=== PATIENT | female | born 2000 | race Caucasian/White ===

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

== ENCOUNTER 2021-06-28 20:57 | Emergency (ER) | payer SELFPAY ==
--- NOTE | 2021-06-28 21:37 | ED Lower Extremity ---
General Chief Complaint: Lower Extremity Stated Complaint: FALL/LEFT LEG INJURY Source: patient History of Present Illness Date Seen by Provider: Jun 28, 2021 Time Seen by Provider: 21:15 Initial Comments PT ARRIVES VIA POV FROM HOME PT STATES 30 MINUTES AGO, SHE STEPPED ON A PIECE OF PAPER ON A [place] FLOOR, WITH HER LEFT FOOT, AND HER LEFT LEG SLID OUT FROM UNDER HER AND SHE WENT TO THE FLOOR NOW HAS PAIN IN LEFT POSTERIOR THIGH NO PARESTHESIAS OR MOTOR DEFICITS PT ABLE TO BEAR WEIGHT NO OTHER INJURIES FROM THE INCIDENT AND DID NOT HIT HEAD NO BACK PAIN HAS NOT TAKEN ANYTHING FOR PAIN NO HISTORY OF PRIOR INJURY TO THIS LEG, OTHER THAN MINOR ANKLE SPRAINS. LMP--JANUARY. PERIODS IRREGULAR. NO CONTROL. HAS NOT DONE HOME TEST PCP: [facility] Allergies and Home Medications Allergies Uncoded Allergies: "ALL PAIN MEDICATIONS EXCEPT TYLENOL AND MOTRIN" (Adverse Reaction, Unknown, 06/28/21) "ALL PAIN MEDICATIONS CAUSE SEIZURES" Review of Systems Constitutional: no symptoms reported Control/STD Prophylaxis: None Musculoskeletal: see HPI Skin: no symptoms reported Psychiatric/Neurological: No Symptoms Reported Past Mnuzdii-Mahrwa-Tftgpa Hx Patient Social History Tobacco Use?: No Substance use?: No Alcohol Use?: No Seasonal Allergies Seasonal Allergies: No Past Medical History Surgeries: Yes (RIGHT ARM SURGERY) Adenoidectomy, Orthopedic, Tonsillectomy Respiratory: No Cardiac: No Neurological: Yes (HAS NEVER SEEN NEUROLOGIST AND DOES NOT TAKE SEIZURE ME DICATION) Seizure Disorder Reproductive Disorders: Yes Female Reproductive Disorders: Menstrual Problems, Polycystic Ovarian Dis Genitourinary: No Gastrointestinal: No Musculoskeletal: Yes (RIGHT ARM SURGERY) Endocrine: Yes (MORBID OBESITY) HEENT: Yes (S/P T&A) Tonsilitis Cancer: No Psychosocial: No Integumentary: No Blood Disorders: No Physical Exam Vital Signs Capillary Refill : Height, Weight, BMI Height: '" Weight: lbs. oz. kg; 39.00 BMI Method: General Appearance: obese (MORBIDLY), other (ANXIOUS, HYPERVENTILATING-THIS STOPS WHEN DISTRACTED. ) Cardiovascular: normal peripheral pulses, regular rate, rhythm, no murmur Respiratory: normal breath sounds Gastrointestinal: non tender Back: normal inspection, no CVA tenderness, no vertebral tenderness Hips: bilateral hip non-tender, bilateral hip normal inspection Legs: right leg normal inspection; left leg limited range of motion, left leg other (TENDERNESS TO LEFT POSTERIOR THIGH--MID AND LOWER ASPECT OF POSTERIOR THIGH. 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 There is no identified radiopaque foreign body. There is no knee joint effusion. Joint spaces appear well-preserved. IMPRESSION: Unremarkable radiographs of the left femur. Reviewed: Reviewed by Me Departure Impression Primary Impression: Strain of muscle, fascia and tendon of the posterior muscle group at thigh level, left thigh, initial encounter Disposition: HOME, SELF-CARE Condition: Stable Departure-Patient Inst. Decision time for Depature: 22:05 Referrals: [facility] [place]) Primary Care Physician MELINA LEWIS MD Patient Instructions: Hamstring Muscle Strain ED Add. Discharge Instructions: ICE TO SORE AREA AT 20 MINUTE INTERVALS FOR FIRST 1-2 DAYS, THEN ALTERNATE ICE AND HEAT TO AREA AT 20 MINUTE INTERVALS TYLENOL 1 GRAM PLUS IBUPROFEN 800 MG 4 TIMES A DAY FOR PAIN AVOID ACTIVITIES THAT WORSEN YOUR PAIN, SUCH SQUATTING, BENDING OVER, CLIMBING STEPS, ETC. FOLLOW UP WITH DR. LEWIS, ORTHOPEDIC SURGEON, IN 1 WEEK FOR FURTHER CARE All discharge instructions reviewed with patient and/or family. Voiced understanding. NEETA WILL DO Jun 28, 2021 21:37
[2021-06-28 22:15] VITALS: BP 159/99
--- NOTE | 2021-06-28 22:35 | Diagnostic Imaging Report ---
EXAMINATION: Left femur radiographs, 2 views, 4 images. COMPARISON: None. HISTORY: 20-year-old female, left thigh pain after fall. FINDINGS: There is no identified acute fracture. There is no identified radiopaque foreign body. There is no knee joint effusion. Joint spaces appear well-preserved. IMPRESSION: Unremarkable radiographs of the left femur. Dictated by: Dictated on workstation # [id number]
== END 2021-06-28 22:15 | disposition home or self-care (01) ==
LOC: EDUNIT# 20:57 → ER 21:00
DX: S76.312A Strain of muscle, fascia and tendon of the posterior muscle group at thigh level, left thigh, initial encounter (principal); E66.01 Morbid (severe) obesity due to excess calories; W01.0XXA Fall on same level from slipping, tripping and stumbling without subsequent striking against object, initial encounter
CPT/HCPCS: 73552; 84703